=== PATIENT | female | born 1980 | race Caucasian/White ===

== ENCOUNTER → 2020-03-04 13:41 | Outpatient (CLI) | payer OTHER, SELFPAY ==
--- NOTE | 2020-03-04 | DI.MRI.S_ITS ---
PROCEDURE: MR HAND RT WO/W CON INDICATIONS: Ganglion, unspecified hand TECHNIQUE: Noncontrast coronal T1 spin echo and STIR, sagittal T1 spin echo with fat saturation and STIR, axial T1 spin echo and T2 fast spin echo with fat saturation. After the administration of contrast, axial/sagittal/coronal T1 spin echo with fat saturation through the right hand . COMPARISON: [facility], MR, MR HAND LT WO/W CON, 03/04/2020, 13:59. FINDINGS: Image quality: Excellent. Bones: The visualized bone marrow demonstrates normal signal on all sequences. The overlying cortex appears intact. No abnormal intraosseous enhancement. Soft tissues: No soft tissue masses are visualized. The scanned muscles demonstrate normal overall bulk and internal signal. Subcutaneous tissues appear normal as well. No abnormal soft tissue enhancement. There is minimal fluid surrounding the flexor tendon slips of the middle finger, for example image 34/10 IMPRESSION: Minimal tenosynovitis involving the middle finger slips of the flexor digitorum profundus and superficialis. Dictated by: Hakan Kwok M.D. on 03/04/2020 at 17:55 Approved by: Hakan Kwok M.D. on 03/04/2020 at 17:59
--- NOTE | 2020-03-04 | DI.MRI.S_ITS ---
PROCEDURE: MR HAND LT WO/W CON INDICATIONS: Ganglion, unspecified hand TECHNIQUE: Noncontrast coronal T1 spin echo and STIR, sagittal T1 spin echo with fat saturation and STIR, axial T1 spin echo and T2 fast spin echo with fat saturation. After the administration of contrast, axial/sagittal/coronal T1 spin echo with fat saturation through the left hand . COMPARISON: None. FINDINGS: Image quality: Excellent. Bones: The visualized bone marrow demonstrates normal signal on all sequences. The overlying cortex appears intact. No abnormal intraosseous enhancement. Soft tissues: No soft tissue masses are visualized. The scanned muscles demonstrate normal overall bulk and internal signal. Subcutaneous tissues appear normal as well. No abnormal soft tissue enhancement. IMPRESSION: Overall, no specific ganglion cyst identified. No suspicious enhancement. Dictated by: Hakan Kwok M.D. on 03/04/2020 at 17:50 Approved by: Hakan Kwok M.D. on 03/04/2020 at 17:55
== END ==
DX: M67.449 Ganglion, unspecified hand (principal); R22.33 Localized swelling, mass and lump, upper limb, bilateral
CPT/HCPCS: 73220; A9579

== ENCOUNTER → 2021-02-03 14:11 | Outpatient (CLI) | payer OTHER, SELFPAY ==
--- NOTE | 2021-02-03 14:14 | DI.MRI.S_ITS ---
PROCEDURE: MR ELBOW RT WO CON INDICATIONS: Pain in right elbow TECHNIQUE: Noncontrast coronal proton density fast spin echo and T2 fast spin echo with fat saturation, axial and sagittal T1 spin echo and T2 fast spin echo with fat saturation through the elbow. COMPARISON: None. FINDINGS: Image quality: Excellent. Lateral structures: The lateral ulnar collateral ligament and radial collateral ligament both appear intact. The overlying common extensor tendon demonstrates mild tendinosis. Medial structures: Mildly increased signal is seen at the posterior portion of the ulnar collateral ligament origin with mild reactive edema in the medial epicondyle. The overlying common flexor tendon appears normal. The ulnar nerve appears normal in size and signal within the cubital tunnel. Anterior structures: The biceps and brachialis tendons both appear intact as they insert onto the proximal radius and ulna, respectively. No bicipitoradial bursal fluid. The median and radial neurovascular bundles appear normal; no focal muscle atrophy to suggest nerve impingement. Posterior structures: The conjoint triceps tendon from the long and lateral heads appears intact. The medial head of the triceps tendon also appears normal, with direct muscle insertion onto the olecranon. No olecranon bursal fluid. Bone and cartilage: Very mild edema within the olecranon process may be related to an acute trabecular bone injury, traction related to the triceps tendon insertion, or less likely inhomogeneous fat suppression. No discrete osseous fracture is seen. Mild edema is also seen in the medial epicondyle adjacent to the ulnar collateral ligament origin. There are no significant degenerative changes in the elbow. No significant elbow joint effusion is present. IMPRESSION: 1. Mild osseous edema in the olecranon may be related to an acute trabecular bone injury or traction injury related to the triceps tendon insertion. No acute osseous fracture is seen. 2. Increased signal at the origin of the ulnar collateral ligament with adjacent mild osseous edema in the medial epicondyle may represent low-grade partial tearing of the ulnar collateral ligament. 3. Mild tendinosis of the common extensor tendon at the origin. Dictated by: Jose Hale M.D. on 02/03/2021 at 16:17 Approved by: Jose Hale M.D. on 02/03/2021 at 16:25
== END ==
PROVIDERS: Referring Provider Orthopaedic Surgery; Visit Provider Orthopaedic Surgery
DX: M25.521 Pain in right elbow (principal); R60.0 Localized edema
CPT/HCPCS: 73221

== ENCOUNTER → 2024-09-13 10:42 | Outpatient (CLI) | payer OTHER, SELFPAY | PROVIDERS: Family Provider Family Medicine; PCP Family Medicine; Referring Provider Family Medicine; Visit Provider Family Medicine | DX: G56.03 Carpal tunnel syndrome, bilateral upper limbs (principal) | CPT/HCPCS: 95885; 95886; 95913 ==